=== PATIENT | female | born 1955 | race Hispanic/Latino ===

== ENCOUNTER 2019-03-27 13:08 | Outpatient (CLI) | payer MEDICARE, OTHER ==
[2019-03-27] MEDS ORDERED: Iopamidol-370 76% 500 ML 1 ML ONE (13:17)
--- NOTE | 2019-03-27 14:31 | CT ---
Exam: Postcontrast soft tissue neck CT HISTORY: Patient lost her voice in January 2019. Difficulty swallowing x2 weeks. Vocal cord paralysi s. FINDINGS: Visualized brain parenchyma is unremarkable. Sinuses: Chronic mucosal disease of the right maxillary sinus. Chronic changes of the left mastoid ai r cells. Aerodigestive tract: No obvious mucosal abnormality in the nasopharynx or oral cavity. No definite ma sses in the oral cavity. Midline fatty raphae of the tongue is preserved. Minimal fullness of the left and right lingual tonsils. Epiglottis has a normal caliber. Preepiglottic fat is preserved. Hyp opharynx is unremarkable. Larynx: Supraglottic, glottic and subglottic larynx appear to be appropriate in terms of attenuation. There is medial deviation of the left vocal cord with asymmetric prominence of the left piriform sinus. Direct visualization is recommended. There does not appear to be a definite mass or nodule in the vocal cords. There is a small focus of fat attenuation in the midportion left vocal cord which may represent a component of atrophy. Salivary glands: Symmetric attenuation of the parotid glands. There is asymmetric increased density o f the right submandibular gland, with respect to the contralateral side.. No evidence of inflammatory change or sialolith. Thyroid gland is unremarkable. Grossly the great vessels of the neck are patent. There is mild intimal thickening of the right carot id artery. Central spinal canal and neural foramina are patent. Stenosis due to degenerative changes noted. No evidence of cervical spine fracture. There is a round right level 5 lymph node measuring 0.9 x 0.5 cm. Upper mediastinum and lung parenchyma: Chronic changes of the lung parenchyma are suspected. Spiculat ed mass in the posterior left upper lobe measures 1.0 x 0.8 cm. There is a necrotic prevascular lymph node, measuring 2.7 x 1.9 cm. There is lymphadenopathy in the AP window which is contiguous wit h the subcarinal region. This conglomeration of lymph nodes measures 3.6 x 2.0 cm. Necrotic right paratracheal lymph node measures 2.0 x 1.5 cm. There is a left hilar lymphadenopathy, incompletely ev aluated. IMPRESSION: 1. 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 2. Spiculated mass in the left upper lobe. 3. Postcontrast soft tissue chest, abdomen, and pelvic CT are recommended. Results of study conveyed to Dr. Landers via [employer] [facility] on 03/27/2019 at 2:28 PM Code CR Transcribed Date/Time: 03/27/2019 2:41 PM
== END 2019-03-27 13:09 | disposition home or self-care (01) ==
LOC: BICCT 13:08
PROVIDERS: ATTEND Otolaryngology Plastic Surgery within the Head & Neck
DX: J38.01 Paralysis of vocal cords and larynx, unilateral (principal); R59.0 Localized enlarged lymph nodes
CPT/HCPCS: 70491; 82565; Q9967

== ENCOUNTER 2019-04-20 01:45 | Emergency (ER) | payer MEDICARE, OTHER ==
[2019-04-20 02:12] LABS: #Basophils 0.2 thou/uL (0.0-0.2); #Eosinphils 0.1 thou/uL (0.0-0.7); #Monocytes 0.6 thou/uL (0.11-0.59); #Neutrophils 11.6 thou/uL (1.40-6.50); %Basophils 1.1 % (0.0-1.0); %Eosinophils 0.7 % (0.0-10.0); %Lymphocytes 14.1 % (21.0-51.0); %Monocytes 3.9 % (0.0-10.0); %Neutrophils 80.2 % (42.0-75.0); Mean Corpuscular HGB CONC 34.6 g/dL (32.0-36.0); Mean Corpuscular Hemoglobin 27.9 pg (27.0-31.0); Mean Corpuscular Volume 80.6 fL (78.0-98.0); Mean Platelet Volume 6.8 fL (7.4-10.4); Platelet Count 373 thou/uL (130-400); RBC Distribution Width 13.2 % (11.5-14.5); Red Blood Cell (RBC) Count 4.67 mill/uL (4.20-5.40); White Blood Cell (WBC) Count 14.4 thou/uL (4.8-10.8)
[2019-04-20 02:26] LABS: ALT (SGPT) 12 U/L (8-55); AST (SGOT) 11 U/L (5-34); Albumin 3.9 g/dL (3.4-4.8); Alkaline Phosphatase 97 U/L (40-110); Anion Gap 14 mmol/L (10-20); BUN (Urea Nitrogen) 9 mg/dL (9.8-20.1); Bilirubin, Total 0.4 mg/dL (0.2-1.2); CK (CPK) 53 U/L (29-168); Calc. Creatinine Clearance 0 mL/min (70-130); Calcium 8.7 mg/dL (7.8-10.44); Carbon Dioxide 22 mmol/L (23-31); Chloride 105 mmol/L (98-107); Estimated GFR-MDRD 76; Globulin 2.6 g/dL (2.4-3.5); Glucose 115 mg/dL (80-115); Lipase 15 U/L (8-78); Potassium 4.5 mmol/L (3.5-5.1); Protein, Total 6.5 g/dL (6.0-8.3); Sodium 136 mmol/L (136-145)
== END 2019-04-20 06:40 | disposition home or self-care (01) ==
LOC: ERS 01:45
DX: R07.9 Chest pain, unspecified (principal); F17.210 Nicotine dependence, cigarettes, uncomplicated
CPT/HCPCS: 36415; 80053; 82550; 83690; 84484; 85025; 93005; 94760

== ENCOUNTER 2019-04-29 08:44 | Outpatient (CLI) | payer MEDICARE, OTHER ==
--- NOTE | 2019-04-29 11:24 | RAD ---
XR UGI Air Contrast History: Dysphagia Comparison: CT neck March 27, 2019 Findings: Patient was brought to the fluoroscopy suite. All questions were answered. Patient was initially given a small volume of gas-forming crystals. Subsequently the patient was give n thick liquid barium. There is a narrowing of the midesophagus the level of the transverse aorta which does not open with multiple different attempts at swallowing. Tertiary contractions of the lowe r one half esophagus. A 13 mm barium tablet was administered orally which does not pass this stricture. The stricture is ir regular. The remainder of the examination was terminated as it was felt unsafe to put the patient in the supin e and prone positions with the barium tablet stuck in the esophagus. 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 This can be sequelae of a exophytic narrowing from metastatic adenopathy versus a primary malignancy. Direct visualization recommended. CODE T Fluoroscopy time: 0.9 minute.
== END 2019-04-29 08:45 | disposition home or self-care (01) ==
LOC: RAD 08:44
PROVIDERS: ATTEND Internal Medicine
DX: R10.12 Left upper quadrant pain (principal); R91.8 Other nonspecific abnormal finding of lung field; K22.2 Esophageal obstruction
CPT/HCPCS: 74246

== ENCOUNTER 2020-08-03 09:11 | Emergency (ER) | payer MEDICARE, OTHER ==
[2020-08-03] MEDS ORDERED: Morphine 4 MG/ML VIAL ONE (11:41)
[2020-08-03] MEDS ORDERED: Ketorolac Tromethamine 30 MG/ML VIAL ONE (11:47)
== END 2020-08-03 12:02 | disposition hospice, inpatient (51) ==
LOC: ERS 09:11
DX: Z43.1 Encounter for attention to gastrostomy (principal); F17.210 Nicotine dependence, cigarettes, uncomplicated
CPT/HCPCS: 74018; 96372; J1885; J2270